=== PATIENT | female | born 1995 | race Caucasian/White ===

== ENCOUNTER → 2017-04-19 | Outpatient (CLI) | payer OTHER ==
--- NOTE | ~2017-04-19 | 2DMMODE ---
[facility] [address] [place] [address] 2 D/M-MODE ECHOCARDIOGRAM Name: KEMAL GALLEGO Room #: REG COUNT INCLUDES THE [facility]#: [id number] Admission: 04/19/17 Attend Phys: Fortunato Arcos Discharge: Date of : 89 Date of Service: 04/19/17 1213 Report #: [id number] THIS REPORT FOR: //name// APPROVED REPORT Study performed: 04/19/2017 11:20:18 EXAM: Comprehensive 2D, Doppler, and color-flow Echocardiogram Patient Location: Echo lab Status: routine BSA: 1.75 BP: 117/76 mmHg Other Information Study Quality: Good Indications Palpitations Chest Pain 2D Dimensions LVEF(%): 61.67 (>50%) IVSd: 6.93 (7-11mm) LVOT Diam: 21.14 (18-24mm) LVDd: 49.91 mm PWd: 8.09 (7-11mm) Ascending Ao: 28.55 (22-36mm) LVDs: 33.31 (25-40mm) Aortic Root: 25.25 mm IVC: 19.00 mm Chu's LVEF: 61.67 % Volumes Left Atrial Volume (Systole) Single Plane 4CH: 33.17 mL Single Plane 2CH: 30.64 mL LA ESV Index: 20.00 mL/m2 Aortic Valve AoV Peak Tad.: 1.19 m/s AO Peak Gr.: 5.71 mmHg LVOT Max P.37 mmHg LVOT Max V: 1.05 m/s DONNA Vmax: 3.07 cm2 Mitral Valve E/A Ratio: 2.3 MV Decel. Time: 228.02 ms [facility] [address] [place] [address] 2 D/M-MODE ECHOCARDIOGRAM Name: KEMAL GALLEGO WILLIE Room #: [facility]#: [id number] Admission: 04/19/17 Attend Phys: Fortunato Arcos Discharge: Date of : 89 Date of Service: 04/19/17 1213 Report #: [id number] E Max Tad.: 0.84 m/s MV A Tad.: 0.37 m/s MV PHT: 66.13 ms IVRT: 64.59 ms Pulmonary Valve PV Peak Tad.: 0.90 m/s PV Peak Gr.: 3.21 mmHg Pulmonary Vein P Vein S: 0.68 m/s P Vein A: 0.20 m/s P Vein D: 0.47 m/s P Vein A Dur.: 114.2 msec P Vein S/D Ratio: 1.45 Tricuspid Valve RAP Estimate: 5.00 mmHg Left Ventricle The left ventricle is normal size. There is normal LV segmental wall motion. There is normal left ventricular wall thickness. The left ventricular systolic function is normal. The left ventricular ejection fraction is within the normal range. LVEF is 60%. The left ventricular diastolic function is normal. Right Ventricle The right ventricle is normal size. The right ventricular systolic function is normal. Atria The left atrium size is normal. The right atrium size is normal. Aortic Valve The aortic valve is normal in structure. No aortic regurgitation is present. There is no aortic valvular stenosis. Mitral Valve The mitral valve is normal in structure. Trace mitral regurgitation. No evidence of mitral valve stenosis. Tricuspid Valve The tricuspid valve is normal in structure. Trace tricuspid regurgitation. Unable to assess PA pressure. Pulmonic Valve The pulmonary valve is normal in structure. Trace pulmonic regurgitation. [facility] [address] [place] [address] 2 D/M-MODE ECHOCARDIOGRAM Name: KEMAL GALLEGO Room #: REG COUNT INCLUDES THE [facility]#: [id number] Admission: 04/19/17 Attend Phys: [facility] Discharge: Date of : 89 Date of Service: 04/19/17 1213 Report #: [id number] Great Vessels The aortic root is normal in size. IVC is normal in size and collapses >50% with inspiration. Pericardium There is no pericardial effusion. <Conclusion> 1. Normal echocardiogram with Doppler EF 60% 2. A pericardial effusion was absent <ELECTRONICALLY SIGNED> By: Marcial Lerner MD, [facility] 04/19/17 1213 1213 1213 Marcial Lerner MD, [facility] /INF
== END ==
LOC: CV 08:02
DX: R00.2 Palpitations (principal); R07.89 Other chest pain